=== PATIENT | female | born 1960 | race Caucasian/White ===

== ENCOUNTER → 2021-08-22 | Outpatient (CLI) | payer SELFPAY | END | disposition home or self-care (01) | LOC: LAB SHORT 18:06 | DX: R30.9 Painful micturition, unspecified (principal) | CPT/HCPCS: 87086 ==

== ENCOUNTER → 2021-11-14 | Outpatient (CLI) | payer SELFPAY ==
[2021-11-15 09:57] LABS: Candida species (DNA Probe) Negative (NEGATIVE); G. vaginalis (DNA Probe) Negative (NEGATIVE); T. vaginalis (DNA Probe) Negative (NEGATIVE)
== END ==
LOC: LAB SHORT 11:51 → LAB FUT 11-14 11:25
PROVIDERS: Nurse Practitioner Family
DX: N95.2 Postmenopausal atrophic vaginitis (principal)
CPT/HCPCS: 87480; 87510; 87660

== ENCOUNTER → 2023-05-19 | Outpatient (CLI) | payer MEDICARE, OTHER ==
[~2023-05-19] MED LIST: Norco 5-325 Ta1 EACH PO; ONDA4ODT MM; Ultram50 MG PO
[2023-05-20 08:07] LABS: Candida species (DNA Probe) Negative (NEGATIVE); G. vaginalis (DNA Probe) Negative (NEGATIVE); T. vaginalis (DNA Probe) Negative (NEGATIVE)
[2023-05-22 03:09] LABS: CHLAMYDIA TRACHOMATIS, NAA Negative (Negative)
== END ==
LOC: LAB 17:00 → LAB SHORT 17:00
PROVIDERS: Student in an Organized Health Care Education/Training Program
DX: N39.0 Urinary tract infection, site not specified (principal)
CPT/HCPCS: 87086; 87480; 87491; 87510; 87591; 87660

== ENCOUNTER 2023-07-26 15:51 | Emergency (ER) | payer MEDICARE, OTHER ==
[~2023-07-26] VITALS: Ht 157.5 cm; Wt 59.0 kg
[2023-07-26 16:40] LABS: BASOPHILS ABSOLUTE AUTO 0.03 K/mm3 (0.00-0.23); BASOPHILS PERCENT AUTO 1 % (0-2); EOSINOPHILS ABSOLUTE AUTO 0.08 K/mm3 (0.00-0.68); EOSINOPHILS PERCENT AUTO 2 % (0-6); Hemoglobin 10.8 g/dL (11.5-16.0); IMMATURE GRAN ABSOLUTE AUTO 0.01 K/mm3 (0.00-0.10); IMMATURE GRAN PERCENT AUTO 0 % (0-1); LYMPHOCYTES ABSOLUTE AUTO 1.89 K/mm3 (0.84-5.20); LYMPHOCYTES PERCENT AUTO 36 % (21-46); MONOCYTES ABSOLUTE AUTO 0.74 K/mm3 (0.16-1.47); MONOCYTES PERCENT AUTO 14 % (4-13); Mean Corpuscular HGB 26.3 pg (26.0-34.0); Mean Corpuscular HGB Conc 32.7 g/dL (31.5-36.5); Mean Corpuscular Volume 80 fL (80-100); NEUTROPHILS ABSOLUTE AUTO 2.46 K/mm3 (1.96-9.15); NEUTROPHILS PERCENT AUTO 47 % (41-73); Platelet Count 247 K/mm3 (150-400); RDW Coefficient Variation 14.8 % (11.7-14.2); RDW Standard Deviation 43.4 fL (35.1-46.3); Red Blood Cell Count 4.11 M/mm3 (3.80-5.20); White Blood Cell Count 5.21 K/mm3 (4.00-11.30)
[2023-07-26] MEDS ORDERED: METF500 PO (17:23)
[2023-07-26] MEDS ORDERED: SUMA25 PO (17:23)
[2023-07-26] MEDS ORDERED: OMEP20ER PO (17:23)
[2023-07-26] MEDS ORDERED: ATOR10 PO (17:24)
[2023-07-26] MEDS ORDERED: Synthroid200 MCG PO (17:24)
[2023-07-26 17:27] LABS: Albumin, Blood 3.3 g/dL (3.4-5.0); Albumin/Globulin Ratio 0.8 (0.8-1.8); Bilirubin, Total 0.1 mg/dL (0.1-1.0); Bun/Creatinine Ratio 15.5 (12.0-20.0); Calcium, Blood 8.8 mg/dL (8.5-10.1); Creatinine, Blood 0.91 mg/dL (0.40-1.00); Potassium, Blood 4.1 mmol/L (3.5-5.5); Total Protein, Blood 7.3 g/dL (6.4-8.2)
[2023-07-26 18:32] LABS: Source, Urine Clean Catch
[2023-07-26 19:06] LABS: Bilirubin, Urine Neg (Neg); Blood, Urine 2+ (Neg); Color, Urine Yellow (P-Yellow); Glucose Qualitative, Urine Neg (Neg); Ketones, Urine Neg (Neg); Leukocyte Esterase, Urine Neg (Neg); Nitrite, Urine Neg (Neg); Protein, Urine Neg (Neg); Specific Gravity, Urine 1.015 (1.003-1.022); Urobilinogen, Urine NORM (Normal); pH, Urine 6.5 (5.0-8.0)
[2023-07-26] MEDS ORDERED: ANUSOL HC PR (19:16)
[2023-07-26 19:27] LABS: Appearance, Urine Hazy (Clear); Squamous Epithelial Cells Few /hpf (Few); White Blood Cells, Urine 0-2 /hpf (0-5)
[2023-07-26 19:28] LABS: Bacteria Many /hpf; Mucus Light (0-Heavy)
[2023-07-26 19:45] VITALS: BP 141/80
== END 2023-07-26 20:23 | disposition home or self-care (01) ==
LOC: ER 15:51
PROVIDERS: Student in an Organized Health Care Education/Training Program
DX: R19.7 Diarrhea, unspecified (principal); R42 Dizziness and giddiness; R14.0 Abdominal distension (gaseous); Z91.040 Latex allergy status; Z79.899 Other long term (current) drug therapy
CPT/HCPCS: 80053; 81001; 83690; 85025; 87086; 93005; 93010; 96360; 99284-25; J7030

== ENCOUNTER 2023-10-26 08:21 | Day surgery (SDC) | payer MEDICARE, OTHER ==
[~2023-10-26] VITALS: Ht 154.9 cm; Wt 58.3 kg
[~2023-10-26 08:21] MED LIST changes: +ACYC400 PO; +ANUSOL HC PR; +ATOR10 PO; +BRIMONIDINE TART5 M2 BOTHEYES; +Lactated Ringer's 1,000 ML IV SCH; +METF500 PO; +OMEP20ER PO; +SUMA25 PO; +Synthroid200 MCG PO
[2023-10-26] MEDS ORDERED: DOTTI1 EA19 TD (09:17)
[2023-10-26 09:25] VITALS: BP 137/71
[2023-10-26] MEDS ORDERED: propofoL 40 ML IV ONE (10:27)
[2023-10-26 11:05] VITALS: BP 99/59
--- NOTE | 2023-10-26 11:06 | NUR ---
10/26/23 1106 Neisha Mojica 1034 HISTORY, CHART, MEDICATIONS AND ALLERGIES REVIEWED BEFORE START OF PROCEDURE. PATIENT CONFIRMS NPO STATUS AND AGREES WITH SCHEDULED PROCEDURE. 3-LEAD EKG REVIEWED WITH PHYSICIAN PRIOR TO START OF PROCEDURE. MONITOR INTACT WITH CONTINUOUS PULSE OXIMETRY,CAPNOGRAPHY, 3-LEAD EKG, INTERMITTENT BP. SUPPLEMENTAL O2 TO BE TITRATED THROUGHOUT PROCEDURE TO MAINTAIN O2 SATURATION ABOVE 90%. PATIENT DETERMINED TO BE ASA APPROPRIATE FOR PROPOFOL SEDATION PRIOR TO START OF PROCEDURE BY DR. VILLA.
--- NOTE | 2023-10-26 11:09 | NUR ---
REPORT RECEIVED FROM WENDY RODRIGUEZ. VSS. PT ON RA. PT ABLE TO REPOSITION SELF IN BED. PT REQUESTING PO FLUIDS AND TOLERATING THEM WELL. PT DENIES PAIN, NAUSEA OR OTHER DISCOMFORTS AT THIS TIME.
[2023-10-26 11:13] VITALS: BP 130/69
[2023-10-26 11:21] VITALS: BP 152/62
--- NOTE | 2023-10-26 11:31 | NUR ---
Patient up to Ambulate independently. Gait steady. VSS AND CONSISTENT WTIH PT BASELINE. PT HAS NO COMPLAINTS AND VERBALIZES READINESS TO GO HOME. Discharge instructions reviewed with patient. Patient verbalizes understanding. Copy given to patient to take home. Patient States Post-Procedure ride home has been arranged. Discharged via wheelchair to private car for ride home. PT BELONGINGS RETURNED TO PT.
== END 2023-10-26 11:36 | disposition home or self-care (01) ==
LOC: ORSCMMR 08:21 → ORD 09:30 → ORSCMMR 11:36
PROVIDERS: Internal Medicine Gastroenterology
PROC: 0DBK8ZX Excision of Ascending Colon, Via Natural or Artificial Opening Endoscopic, Diagnostic (ICD-10-PCS; principal; 2023-10-26 09:30)
DX: R19.4 Change in bowel habit (principal); Z80.0 Family history of malignant neoplasm of digestive organs; D12.2 Benign neoplasm of ascending colon; E11.9 Type 2 diabetes mellitus without complications; E78.00 Pure hypercholesterolemia, unspecified; Z79.84 Long term (current) use of oral hypoglycemic drugs; Z79.899 Other long term (current) drug therapy
CPT/HCPCS: 82947; 88305; J2704; J7120

== ENCOUNTER → 2024-12-12 | Outpatient (CLI) | payer MEDICARE, OTHER ==
[~2024-12-12] MED LIST changes: +DELTASONE20 MG PO; +DIAZ2 PO; +DOTTI1 EA19 TD; -Lactated Ringer's 1,000 ML IV SCH
[2024-12-12 16:12] LABS: Source, Urine Clean Catch
[2024-12-12 19:12] LABS: Appearance, Urine Clear (Clear); Bilirubin, Urine Neg (Neg); Blood, Urine 1+ (Neg); Glucose Qualitative, Urine Neg (Neg); Ketones, Urine Neg (Neg); Leukocyte Esterase, Urine 1+ (Neg); Nitrite, Urine Pos (Neg); Protein, Urine Neg (Neg); Urobilinogen, Urine NORM (Normal)
[2024-12-12 19:19] LABS: Color, Urine Pale Yellow (P-Yellow)
[2024-12-12 19:23] LABS: Bacteria Many /hpf; Red Blood Cells, Urine 0-2 /hpf (0-2); Squamous Epithelial Cells Few /hpf (Few)
== END ==
LOC: LAB 16:10 → LAB SHORT 16:10
PROVIDERS: Obstetrics & Gynecology
DX: R30.0 Dysuria (principal)
CPT/HCPCS: 81001; 87077; 87086; 87186

== ENCOUNTER → 2025-01-04 | Outpatient (CLI) | payer MEDICARE, OTHER ==
[2025-01-04 17:26] LABS: Source, Urine Clean Catch
[2025-01-04 18:42] LABS: Appearance, Urine Clear (Clear); Bilirubin, Urine Neg (Neg); Blood, Urine Neg (Neg); Glucose Qualitative, Urine Neg (Neg); Ketones, Urine Neg (Neg); Leukocyte Esterase, Urine 2+ (Neg); Nitrite, Urine Neg (Neg); Protein, Urine Neg (Neg); Specific Gravity, Urine 1.005 (1.003-1.022); Urobilinogen, Urine NORM (Normal)
[2025-01-04 18:53] LABS: Color, Urine Pale Yellow (P-Yellow)
[2025-01-04 18:54] LABS: Bacteria Many /hpf; Red Blood Cells, Urine 0-2 /hpf (0-2); Squamous Epithelial Cells Few /hpf (Few)
== END ==
LOC: LAB 17:23 → LAB SHORT 17:23
PROVIDERS: Obstetrics & Gynecology
DX: R30.0 Dysuria (principal)
CPT/HCPCS: 81001; 87086

== ENCOUNTER → 2025-08-03 | Outpatient (CLI) | payer MEDICARE | END | disposition home or self-care (01) | LOC: LAB 16:03 → LAB SHORT 16:03 | DX: N39.0 Urinary tract infection, site not specified (principal) | CPT/HCPCS: 87077; 87086; 87186 ==